=== PATIENT | female | born 1960 | race Caucasian/White ===

== ENCOUNTER 2024-05-07 23:15 | Emergency (ER) | payer SELFPAY ==
[~2024-05-07] VITALS: Ht 170.2 cm; Wt 74.1 kg
[2024-05-07 23:23] VITALS: BP 144/78; PULSE 82; RESP 18; TEMP 96.7; O2SAT 96
== END 2024-05-08 07:23 | disposition left against medical advice (07) ==
LOC: ER 23:18
DX: R11.0 Nausea (principal); R19.7 Diarrhea, unspecified; Z53.21 Procedure and treatment not carried out due to patient leaving prior to being seen by health care provider